=== PATIENT | female | born 1960 | race Caucasian/White ===

== ENCOUNTER 2017-04-11 11:37 | Inpatient (IN) | payer OTHER ==
[~2017-04-11] VITALS: Ht 154.9 cm; Wt 113.4 kg
[2017-04-11 11:45] VITALS: Ht 154.9 cm; Wt 113.4 kg
[2017-04-11] MEDS ORDERED: FLA250 (12:28)
[2017-04-11] MEDS ORDERED: GLYBURIDE5 MG PO (12:28)
[2017-04-11] MEDS ORDERED: METFORMIN HYDR500 M1 (12:28)
[2017-04-11] MEDS ORDERED: KEFLEX250 M1 (12:29)
[2017-04-11 13:04] LABS: BASOPHIL % 0.1 % (0-2); RED CELL DISTRIBUTION WIDTH 13.7 % (11.5-14.5)
[2017-04-11 13:17] LABS: PLATELET COUNT 526 x10^3mcL (130-400)
[2017-04-11 13:28] LABS: CALCIUM 8.5 mg/dL (8.5-10.1); CARBON DIOXIDE 25 mmol/L (21-32); CHLORIDE SERUM 95 mmol/L (98-107); CREATININE SERUM 0.8 mg/dL (0.6-1.0); GFR1 > 60 mL/min; GLUCOSE SERUM 308 mg/dL (74-106); POTASSIUM SERUM 3.6 mmol/L (3.5-5.1); SODIUM SERUM 133 mmol/L (136-145)
[2017-04-11 13:29] LABS: ALBUMIN 1.9 g/dL (3.4-5.0); BILIRUBIN TOTAL 0.4 mg/dL (0.20-1.00); TOTAL PROTEIN, SERUM 7.6 g/dL (6.4-8.2)
[2017-04-11 13:30] LABS: ALKALINE PHOSPHATASE 152 U/L (46-116); ALT/SGPT 15 U/L (14-59); AST/SGOT 10 U/L (15-37)
[2017-04-11 14:39] LABS: MAGNESIUM 1.4 mg/dL (1.8-2.4)
[2017-04-11 14:40] LABS: CHOLESTEROL/HDL RATIO 3.3
[2017-04-11 14:46] LABS: FREE T4 1.55 ng/dL (0.76-1.46); FREE THYROXINE INDEX 3.4 ug/dL (1.4-4.5); T4(THYROXINE) 8.6 ug/dL (4.7-13.3)
[2017-04-11 14:53] LABS: T3 TOTAL 0.53 ng/mL
[2017-04-11 15:04] VITALS: BP 142/69
[2017-04-11 17:37] VITALS: BP 152/74
[2017-04-11 21:06] VITALS: BP 131/63
[2017-04-11 23:25] LABS: UA SPECIFIC GRAVITY 1.015 (1.005-1.035); microscopic required? YES; urine erythrocyte 2+ (NEGATIVE)
[2017-04-11 23:55] LABS: AMPHETAMINE QUAL UR NONE DETECTED (NEG <=1000)
[2017-04-12 05:36] VITALS: BP 108/51
[2017-04-12 07:28] LABS: RED CELL DISTRIBUTION WIDTH 13.5 % (11.5-14.5)
[2017-04-12 07:29] LABS: PLATELET COUNT 423 x10^3mcL (130-400)
[2017-04-12 07:43] LABS: CARBON DIOXIDE 26.2 mmol/L (21-32); CHLORIDE SERUM 105 mmol/L (98-107); CREATININE SERUM 0.6 mg/dL (0.6-1.0); GFR1 > 60 mL/min; GLUCOSE SERUM 190 mg/dL (74-106); POTASSIUM SERUM 3.9 mmol/L (3.5-5.1); SODIUM SERUM 138 mmol/L (136-145)
[2017-04-12 09:33] LABS: BAND NEUTROPHIL 6 % (0-10); BASOPHIL 0 % (0-2); METAMYELOCTE 2 % (0-2); MONOCYTE 8 % (0-7); PLATELET MORPHOLOGY PLATELETS INCREASED; SEGMENTED NEUTROPHILS 72 % (37-75); rbc morphology (normal/abnorm) ABNORMAL (NORMAL)
[2017-04-12 10:05] VITALS: BP 119/54
[2017-04-12 13:37] VITALS: BP 103/55
[2017-04-12 18:01] VITALS: BP 127/67
[2017-04-12 20:42] VITALS: BP 114/62
[2017-04-13 06:08] VITALS: BP 124/66
[2017-04-13 07:36] LABS: BASOPHIL % 0.3 % (0-2); PLATELET COUNT 391 x10^3mcL (130-400)
[2017-04-13 08:19] LABS: CALCIUM 8.4 mg/dL (8.5-10.1); CARBON DIOXIDE 25.5 mmol/L (21-32); CHLORIDE SERUM 107 mmol/L (98-107); CREATININE SERUM 0.5 mg/dL (0.6-1.0); GFR1 > 60 mL/min; GLUCOSE SERUM 106 mg/dL (74-106); POTASSIUM SERUM 4.4 mmol/L (3.5-5.1); SODIUM SERUM 141 mmol/L (136-145)
[2017-04-13 09:37] VITALS: BP 149/65
[2017-04-13] MEDS ORDERED: FERL PO (12:46)
[2017-04-13] MEDS ORDERED: GLU850 PO (12:47)
[2017-04-13] MEDS ORDERED: LEVEMIR100 U/M1 SQ (12:48)
[2017-04-13] MEDS ORDERED: HUMULIN R100 U/1 M1 IV (12:57)
[2017-04-13 13:25] VITALS: BP 137/67
[2017-04-13] MEDS ORDERED: CLINDAMYCIN HC300 MG PO (14:28)
[2017-04-13] MEDS ORDERED: BD LACTINEX1.4 MG PO (14:41)
[2017-04-13 14:49] VITALS: BP 137/67
[2017-04-13] MEDS ORDERED: NOR10T PO (14:49)
[2017-04-13] MEDS ORDERED: STOOL SOFTENER100 MG PO (14:49)
[2017-04-13] MEDS ORDERED: LIPI20 PO (14:49)
[2017-04-13] MEDS ORDERED: GOOD SENSE ASPI81 M3 PO (14:49)
[2017-04-13 17:23] VITALS: BP 130/77
== END 2017-04-13 19:04 | disposition home health service (06) | DRG 871 ==
LOC: ED 11:37 → DU 13:38 → EDBD 13:38 → DU 14:44
PROVIDERS: Emergency Medicine; Family Medicine; Family Medicine Sports Medicine
PROC: 0Y9N0ZZ Drainage of Left Foot, Open Approach (ICD-10-PCS; principal; 2017-04-11)
DX: A41.9 Sepsis, unspecified organism (principal); N17.0 Acute kidney failure with tubular necrosis; E44.0 Moderate protein-calorie malnutrition; E87.1 Hypo-osmolality and hyponatremia; Z68.41 Body mass index [BMI] 40.0-44.9, adult; L03.116 Cellulitis of left lower limb; R65.20 Severe sepsis without septic shock; S91.312S Laceration without foreign body, left foot, sequela; B96.89 Other specified bacterial agents as the cause of diseases classified elsewhere; E11.65 Type 2 diabetes mellitus with hyperglycemia; B35.1 Tinea unguium; D47.3 Essential (hemorrhagic) thrombocythemia; D50.9 Iron deficiency anemia, unspecified; E83.42 Hypomagnesemia; F43.23 Adjustment disorder with mixed anxiety and depressed mood; E66.01 Morbid (severe) obesity due to excess calories; W25.XXXS Contact with sharp glass, sequela
CPT/HCPCS: 83880; 84439; 85378; J0696; J1200; J1610; J1815; J1885; J1956; J2250; J2310; J3010; J3475; J3490; J7030; J7050; P9045; Q0092; Q9967

== ENCOUNTER 2017-04-22 19:10 | Inpatient (IN) | payer OTHER ==
[~2017-04-22] VITALS: Ht 154.9 cm; Wt 102.2 kg
[~2017-04-22 19:10] MED LIST: BD LACTINEX1.4 MG PO; CLINDAMYCIN HC300 MG PO; FERL PO; FLA250; GLU850 PO; GLYBURIDE5 MG PO; GOOD SENSE ASPI81 M3 PO; HUMULIN R100 U/1 M1 IV; KEFLEX250 M1; LEVEMIR100 U/M1 SQ; LIPI20 PO; METFORMIN HYDR500 M1; NOR10T PO; STOOL SOFTENER100 MG PO
[2017-04-23] VITALS (7 sets, daily range): BP systolic 120–141; BP diastolic 55–72
[2017-04-23 00:59] LABS: BASOPHIL % 0.8 % (0-2)
[2017-04-23 01:06] LABS: RED CELL DISTRIBUTION WIDTH 15.1 % (11.5-14.5)
[2017-04-23 01:18] LABS: CALCIUM 9.4 mg/dL (8.5-10.1); CHLORIDE SERUM 102 mmol/L (98-107); CREATININE SERUM 0.6 mg/dL (0.6-1.0); GFR1 > 60 mL/min; GLUCOSE SERUM 112 mg/dL (74-106); POTASSIUM SERUM 3.7 mmol/L (3.5-5.1); SODIUM SERUM 141 mmol/L (136-145)
[2017-04-23 01:22] LABS: ALKALINE PHOSPHATASE 76 U/L (46-116); ALT/SGPT 19 U/L (14-59); AST/SGOT 15 U/L (15-37); BILIRUBIN TOTAL 0.29 mg/dL (0.20-1.00)
[2017-04-23 01:24] LABS: ALBUMIN 3.1 g/dL (3.4-5.0); TOTAL PROTEIN, SERUM 8.3 g/dL (6.4-8.2)
[2017-04-23 03:01] LABS: T3 TOTAL 0.91 ng/mL
[2017-04-23 03:07] LABS: CHOLESTEROL/HDL RATIO 2.5; MAGNESIUM 1.9 mg/dL (1.8-2.4); PHOSPHOROUS 3.8 mg/dL (2.5-4.9)
[2017-04-23 03:20] LABS: FREE T4 1.18 ng/dL (0.76-1.46); FREE THYROXINE INDEX 2.9 ug/dL (1.4-4.5); T4(THYROXINE) 8.3 ug/dL (4.7-13.3)
[2017-04-23] MEDS ORDERED: GLYBURIDE5 MG PO (03:45)
[2017-04-23] MEDS ORDERED: METFORMIN HCL850 MG PO (03:46)
[2017-04-23] MEDS ORDERED: LEVEMIR100 U/M1 SC (03:47)
[2017-04-23 04:25] LABS: PLATELET COUNT 655 x10^3mcL (130-400)
[2017-04-23 08:21] LABS: UA SPECIFIC GRAVITY 1.025 (1.005-1.035); microscopic required? YES; urine erythrocyte TRACE (NEGATIVE)
[2017-04-23 08:32] LABS: AMPHETAMINE QUAL UR NONE DETECTED (NEG <=1000)
[2017-04-23 09:14] LABS: BASOPHIL % 0.7 % (0-2); RED CELL DISTRIBUTION WIDTH 14.4 % (11.5-14.5)
[2017-04-23 09:20] LABS: PLATELET COUNT 556 x10^3mcL (130-400)
[2017-04-23 09:36] LABS: CALCIUM 8.8 mg/dL (8.5-10.1); CHLORIDE SERUM 105 mmol/L (98-107); CREATININE SERUM 0.6 mg/dL (0.6-1.0); GFR1 > 60 mL/min; GLUCOSE SERUM 126 mg/dL (74-106); MAGNESIUM 1.7 mg/dL (1.8-2.4); PHOSPHOROUS 3.5 mg/dL (2.5-4.9); POTASSIUM SERUM 4.3 mmol/L (3.5-5.1); SODIUM SERUM 141 mmol/L (136-145)
[2017-04-23 13:13] LABS: IRON 40 ug/dL (50-170); TOTAL IRON BINDING CAPACITY 310 ug/dL (250-450)
[2017-04-23 13:27] LABS: RED BLOOD CELLS 4.21 M/mm3 (4.10-5.10)
[2017-04-24 05:31] VITALS: BP 113/55
[2017-04-24 06:31] LABS: BASOPHIL % 0.5 % (0-2)
[2017-04-24 06:35] LABS: PLATELET COUNT 477 x10^3mcL (130-400); RED CELL DISTRIBUTION WIDTH 14.6 % (11.5-14.5)
[2017-04-24 06:58] LABS: CALCIUM 8.5 mg/dL (8.5-10.1); CARBON DIOXIDE 27.4 mmol/L (21-32); CHLORIDE SERUM 106 mmol/L (98-107); CREATININE SERUM 0.9 mg/dL (0.6-1.0); GFR1 > 60 mL/min; GLUCOSE SERUM 146 mg/dL (74-106); MAGNESIUM 2.3 mg/dL (1.8-2.4); PHOSPHOROUS 3.8 mg/dL (2.5-4.9); POTASSIUM SERUM 5.1 mmol/L (3.5-5.1); SODIUM SERUM 140 mmol/L (136-145)
[2017-04-24 09:32] VITALS: BP 105/58
[2017-04-24 16:44] VITALS: BP 111/60
[2017-04-24 22:11] VITALS: BP 110/57
[2017-04-25 05:41] VITALS: BP 117/57
[2017-04-25 06:31] LABS: BASOPHIL % 0.9 % (0-2)
[2017-04-25 06:56] LABS: PLATELET COUNT 433 x10^3mcL (130-400); RED CELL DISTRIBUTION WIDTH 15.3 % (11.5-14.5)
[2017-04-25 10:27] VITALS: BP 113/61
[2017-04-25 19:24] VITALS: BP 146/70
[2017-04-25 22:59] VITALS: BP 130/61
[2017-04-26 05:54] VITALS: BP 148/67
[2017-04-26 06:36] LABS: BASOPHIL % 0.7 % (0-2); PLATELET COUNT 357 x10^3mcL (130-400)
[2017-04-26 07:03] LABS: CALCIUM 8.8 mg/dL (8.5-10.1); CARBON DIOXIDE 30.5 mmol/L (21-32); CHLORIDE SERUM 107 mmol/L (98-107); CREATININE SERUM 0.7 mg/dL (0.6-1.0); GFR1 > 60 mL/min; GLUCOSE SERUM 103 mg/dL (74-106); MAGNESIUM 1.8 mg/dL (1.8-2.4); PHOSPHOROUS 3.7 mg/dL (2.5-4.9); POTASSIUM SERUM 4.6 mmol/L (3.5-5.1); SODIUM SERUM 142 mmol/L (136-145)
[2017-04-26 10:31] VITALS: BP 135/72
[2017-04-26] MEDS ORDERED: LAC PO (10:54)
[2017-04-26] MEDS ORDERED: CLEOCIN HCL300 MG PO (10:54)
[2017-04-26] MEDS ORDERED: LEVOFLOXACIN500 M1 PO (10:54)
[2017-04-26] MEDS ORDERED: LEVEMIR100 U/M1 SC (10:55)
[2017-04-26 13:37] VITALS: BP 135/72
[2017-04-26 18:16] VITALS: BP 153/78
[2017-04-26 19:35] VITALS: BP 135/72
== END 2017-04-26 19:48 | disposition home health service (06) | DRG 622 ==
LOC: ED 19:10 → MU 04-23 00:43 → DU 04-23 00:43 → MU 04-24 06:22
PROVIDERS: Emergency Medicine; Family Medicine; Podiatrist
PROC: 0JBR0ZZ Excision of Left Foot Subcutaneous Tissue and Fascia, Open Approach (ICD-10-PCS; principal; 2017-04-23 13:00)
DX: E11.621 Type 2 diabetes mellitus with foot ulcer (principal); E43 Unspecified severe protein-calorie malnutrition; L97.429 Non-pressure chronic ulcer of left heel and midfoot with unspecified severity; Z68.41 Body mass index [BMI] 40.0-44.9, adult; N17.0 Acute kidney failure with tubular necrosis; E11.65 Type 2 diabetes mellitus with hyperglycemia; E11.51 Type 2 diabetes mellitus with diabetic peripheral angiopathy without gangrene; E83.42 Hypomagnesemia; E03.9 Hypothyroidism, unspecified; D50.9 Iron deficiency anemia, unspecified; Z79.4 Long term (current) use of insulin; Z79.82 Long term (current) use of aspirin
CPT/HCPCS: 83880; 84439; 94150; 97110-GP; 97116-GP; 97530-GP; J1644; J1815; J1956; J2250; J2270; J2405; J2543; J2704; J3010; J3475; J3490; J7030; Q0092

== ENCOUNTER 2018-03-16 23:10 | Emergency (ER) | payer OTHER ==
[~2018-03-16 23:10] MED LIST changes: +CLEOCIN HCL300 MG PO; +LAC PO; +LEVEMIR100 U/M1 SC; +LEVOFLOXACIN500 M1 PO; +METFORMIN HCL850 MG PO
[2018-03-17 02:14] VITALS: BP 152/93
== END 2018-03-17 02:14 | disposition home or self-care (01) ==
LOC: ED 23:10
DX: M54.42 Lumbago with sciatica, left side (principal); N39.0 Urinary tract infection, site not specified; E11.9 Type 2 diabetes mellitus without complications
CPT/HCPCS: 82962; J1885

== ENCOUNTER 2018-03-21 16:11 | Emergency (ER) | payer OTHER ==
[~2018-03-21] VITALS: Ht 157.5 cm; Wt 114.3 kg
[2018-03-21 16:19] VITALS: Ht 157.5 cm; Wt 114.3 kg
[2018-03-21 19:23] VITALS: BP 126/60
== END 2018-03-21 19:23 | disposition home or self-care (01) ==
LOC: ED 16:11
DX: M79.662 Pain in left lower leg (principal); M54.42 Lumbago with sciatica, left side; E66.01 Morbid (severe) obesity due to excess calories; E11.9 Type 2 diabetes mellitus without complications; Z88.0 Allergy status to penicillin
CPT/HCPCS: J1885; J2270; Q0162